=== PATIENT | female | born 1970 | race Asian ===

== ENCOUNTER 2018-07-23 19:25 | Emergency (ER) | payer SELFPAY ==
[~2018-07-23] VITALS: Ht 167.6 cm; Wt 49.9 kg
[2018-07-23 19:26] VITALS: BP 138/87
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
[2018-07-23 21:38] VITALS: BP 135/83
== END 2018-07-23 21:38 | disposition home or self-care (01) ==
LOC: EDBD 19:25 → EMR 20:02
DX: Z02.89 Encounter for other administrative examinations (principal); F10.120 Alcohol abuse with intoxication, uncomplicated
CPT/HCPCS: 99282